=== PATIENT | female | born 1990 | race Caucasian/White ===

== ENCOUNTER 2016-12-21 09:59 | Emergency (ER) | payer MEDICAID ==
[~2016-12-21] VITALS: Ht 152.4 cm; Wt 80.7 kg
[2016-12-21 11:59] LABS: UA SPECIFIC GRAVITY >=1.030 (1.005-1.035); microscopic required? YES; urine erythrocyte 3+ (NEGATIVE)
[2016-12-21 12:04] LABS: CALCIUM 8.6 mg/dL (8.5-10.1); CARBON DIOXIDE 28.3 mmol/L (21-32); CHLORIDE SERUM 105 mmol/L (98-107); CREATININE SERUM 0.7 mg/dL (0.6-1.0); GFR1 > 60 mL/min; GLUCOSE SERUM 92 mg/dL (74-106); POTASSIUM SERUM 4.2 mmol/L (3.5-5.1); SODIUM SERUM 138 mmol/L (136-145)
[2016-12-21 12:08] LABS: ALBUMIN 3.5 g/dL (3.4-5.0); ALKALINE PHOSPHATASE 69 U/L (46-116); ALT/SGPT 31 U/L (14-59); AST/SGOT 17 U/L (15-37); BILIRUBIN TOTAL 0.6 mg/dL (0.20-1.00); TOTAL PROTEIN, SERUM 7.4 g/dL (6.4-8.2)
[2016-12-21 12:16] LABS: BASOPHIL % 0.4 % (0-2); PLATELET COUNT 348 x10^3mcL (130-400)
[2016-12-21 12:25] LABS: RED CELL DISTRIBUTION WIDTH 15.2 % (11.5-14.5)
[2016-12-21 14:16] VITALS: BP 108/71
== END 2016-12-21 15:51 | disposition home or self-care (01) ==
LOC: ED 09:59
PROVIDERS: Emergency Medicine
DX: N93.8 Other specified abnormal uterine and vaginal bleeding (principal)
CPT/HCPCS: J1885; J2405; J3010; J7030; Q0092

== ENCOUNTER 2018-07-15 15:49 | Emergency (ER) | payer MEDICAID ==
[~2018-07-15] VITALS: Ht 157.5 cm; Wt 81.2 kg
[2018-07-15 15:58] VITALS: BP 140/78
[2018-07-15 17:31] LABS: UA SPECIFIC GRAVITY <=1.005 (1.005-1.035); microscopic required? YES; urine erythrocyte 2+ (NEGATIVE)
== END 2018-07-15 17:45 | disposition home or self-care (01) ==
LOC: ED 15:49
PROVIDERS: Specialist
DX: R10.32 Left lower quadrant pain (principal)
CPT/HCPCS: J0696; J1885

== ENCOUNTER 2019-05-14 21:20 | Emergency (ER) | payer SELFPAY ==
[~2019-05-14] VITALS: Ht 152.4 cm; Wt 81.6 kg
[2019-05-14 22:10] VITALS: Ht 152.4 cm; Wt 81.6 kg
[2019-05-15 00:20] LABS: BASOPHIL % 0.5 % (0-2); PLATELET COUNT 448 x10^3mcL (130-400)
[2019-05-15 00:27] LABS: CALCIUM 8.8 mg/dL (8.5-10.1); CARBON DIOXIDE 26.8 mmol/L (21-32); CHLORIDE SERUM 105 mmol/L (98-107); CREATININE SERUM 0.8 mg/dL (0.6-1.0); GFR1 > 60 mL/min; GLUCOSE SERUM 121 mg/dL (74-106); POTASSIUM SERUM 4.1 mmol/L (3.5-5.1); SODIUM SERUM 141 mmol/L (136-145)
[2019-05-15 00:31] LABS: ALBUMIN 3.7 g/dL (3.4-5.0); ALKALINE PHOSPHATASE 68 U/L (46-116); ALT/SGPT 34 U/L (14-59); AST/SGOT 21 U/L (15-37); BILIRUBIN TOTAL 0.2 mg/dL (0.20-1.00); TOTAL PROTEIN, SERUM 8.1 g/dL (6.4-8.2)
[2019-05-15 02:44] VITALS: BP 112/71
== END 2019-05-15 02:44 | disposition home or self-care (01) ==
LOC: ED 21:20
PROVIDERS: Emergency Medicine
DX: G43.909 Migraine, unspecified, not intractable, without status migrainosus (principal)
CPT/HCPCS: J1885; J2765